=== PATIENT | female | born 1965 ===

== ENCOUNTER 2025-05-04 18:58 | Emergency (ER) | payer BC ==
[~2025-05-04] VITALS: Ht 167.6 cm; Wt 86.2 kg
[2025-05-04] MEDS ORDERED: Dexamethasone Sod Phos 10 MG/ML 1ML VIAL IV ONE (19:30)
[2025-05-04] MEDS ORDERED: DiphenhydrAMINE HCl 50 MG/ML 1ML Vial IV ONE (19:30)
[2025-05-04] MEDS ORDERED: EPIPEN0.3 MG/0.3 IM (20:54)
== END 2025-05-04 20:59 | disposition home or self-care (01) ==
LOC: ER 18:58
DX: T63.441A Toxic effect of venom of bees, accidental (unintentional), initial encounter (principal); Z91.030 Bee allergy status
CPT/HCPCS: 96374; 96375; 99284-25